=== PATIENT | female | born 1940 | race African-American/Black ===

== ENCOUNTER → 2017-06-29 | Outpatient (CLI) | payer MEDICARE, OTHER | END | disposition home or self-care (01) | LOC: KCIC US 14:47 | DX: M79.605 Pain in left leg (principal); M79.89 Other specified soft tissue disorders | CPT/HCPCS: 93971 ==

== ENCOUNTER → 2017-08-12 | Outpatient (CLI) | payer MEDICARE ==
[~2017-08-12] MED LIST: IOHEXOL 180 MG/ML 10 ML VIAL.; methylPREDNISolone ACETATE 40 MG/ML VIAL.; methylPREDNISolone ACETATE 80 MG/ML VIAL.
== END ==
LOC: PNCL 12:40
DX: M51.16 Intervertebral disc disorders with radiculopathy, lumbar region (principal); M48.061 Spinal stenosis, lumbar region without neurogenic claudication; I10 Essential (primary) hypertension; M19.90 Unspecified osteoarthritis, unspecified site; M79.605 Pain in left leg; Z88.2 Allergy status to sulfonamides; Z88.8 Allergy status to other drugs, medicaments and biological substances; Z98.890 Other specified postprocedural states
CPT/HCPCS: 62323; J1030; J1040; Q9965

== ENCOUNTER → 2017-08-26 | Outpatient (CLI) | payer MEDICARE ==
[~2017-08-26] MED LIST changes: +LIDOCAINE 1% PF 2 ML VIAL.
== END | disposition home or self-care (01) ==
LOC: PNCL 13:44
DX: M51.16 Intervertebral disc disorders with radiculopathy, lumbar region (principal); M48.061 Spinal stenosis, lumbar region without neurogenic claudication; Z88.1 Allergy status to other antibiotic agents; Z88.8 Allergy status to other drugs, medicaments and biological substances
CPT/HCPCS: 62323; J1030; J1040; Q9965

== ENCOUNTER → 2017-09-30 | Outpatient (CLI) | payer MEDICARE | END | disposition home or self-care (01) | LOC: PNCL 13:40 | DX: M51.16 Intervertebral disc disorders with radiculopathy, lumbar region (principal); M48.061 Spinal stenosis, lumbar region without neurogenic claudication; I12.9 Hypertensive chronic kidney disease with stage 1 through stage 4 chronic kidney disease, or unspecified chronic kidney disease; N18.2 Chronic kidney disease, stage 2 (mild) | CPT/HCPCS: G0463 ==

== ENCOUNTER → 2017-12-31 | Outpatient (CLI) | payer MEDICARE ==
[~2017-12-31] MED LIST changes: +FELO10TA PO; +GABA-585 PO; +INDA1.25 PO; -IOHEXOL 180 MG/ML 10 ML VIAL.; -LIDOCAINE 1% PF 2 ML VIAL.; +POTA10TA12 PO; +PROP15DR EACHEYE; +SPIR25TA5 PO; +TRAM50TA PO; -methylPREDNISolone ACETATE 40 MG/ML VIAL.; -methylPREDNISolone ACETATE 80 MG/ML VIAL.
--- NOTE | 2017-12-31 15:22 | PAIN ---
DATE OF SERVICE: 12/31/2017 PROGRESS NOTE FOR PAIN CLINIC DIAGNOSIS: Lumbar radiculopathy with lumbar spinal stenosis and lumbar degenerative disk disease. HISTORY OF PRESENT ILLNESS: The patient is a 77-year-old female who returns for followup status post lumbar epidural steroid injections x 2. The most recent injection was on 08/26/2017. The patient did very well. We tried a Medrol Dosepak after this. She was not quite ready for another shot and the Medrol Dosepak has done tremendous job in decreasing the pain as well in her left leg and her low back. The patient reports she is doing very well, currently helping and improvement of approximately 80%. The patient reports still some pain in the left leg, but very infrequent, only with extended standing and walking. The patient rates her pain is a 1 on a scale of 10 at its worst, its average and its least and is a 1 today. The patient reports it is tingling and dull at times, but doing much better. She is sleeping 8 hours a night, does not awaken her from sleep. She has been increasing her distance walking, doing household activities, recreational activities, traveling without difficulty. The patient reports no new motor or sensory deficits, no new bowel or bladder incontinence or other complaints. PHYSICAL EXAMINATION: VITAL SIGNS: The patient's blood pressure is 152/82, pulse 87, respirations are 20, temperature 98.5 degrees Fahrenheit, height is 5 feet 1 inch, weight is 139 pounds. GENERAL: The patient is awake, alert, oriented, appropriate, very pleasant demeanor. HEENT: Head shows normocephalic, atraumatic. Extraocular movements are intact and symmetrical. Oral cavity: Mucous membranes are moist and pink. Dentition is intact. NECK: Shows anterior throat supple without palpable lymphadenopathy noted. Swallow reflex is symmetrical. CHEST: Shows normal on inspection. Breath sounds are clear to auscultation bilaterally. HEART: Shows S1, S2 clear. No murmurs auscultated. ABDOMEN: Soft, nontender, nondistended. No palpable organomegaly is noted. No rebound or guarding demonstrated. BACK: Shows spine grossly in the midline. Normal appearing thoracic kyphosis and lumbar lordotic curvature. Lumbar paraspinous muscle shows symmetrical on inspection, on palpation shows some moderate tenderness, only diffusely bilaterally. EXTREMITIES: Lower extremities show deep tendon reflexes 1+ in the patellar and tendo calcaneus tendons. Motor exam is strong with 5/5 dorsiflexion and extension. The patient does have approximately 1-2+ pitting edema in the bilateral ankles to about a third of the distance to the knee on anterior tibia, slightly more on the left than the right, but is nontender. Options were discussed with the patient. The patient's old chart was reviewed as her current medication regimen updated. Current review of systems updated today as well. We will hold on any further injections at this time as the patient is doing quite well. We will have patient Medrol Dosepak available for her if she needs in the future and if this is not helpful in the future, we will revisit potential interventional techniques once again as she did very well with these as well. The patient would like to wait on each of these and we will have Medrol Dosepak available for her if necessary in the future. The patient also encouraged to follow up with her primary care physician regarding her edema in the legs as well. TRINI PÉREZ MD DR: MAN/jimbo JOB#: [id number] / [id number]
== END | disposition home or self-care (01) ==
LOC: PNCL 13:35
PROVIDERS: ATTEND Anesthesiology
DX: M51.16 Intervertebral disc disorders with radiculopathy, lumbar region (principal); M48.061 Spinal stenosis, lumbar region without neurogenic claudication; Z79.899 Other long term (current) drug therapy
CPT/HCPCS: G0463

== ENCOUNTER → 2018-10-15 | Outpatient (CLI) | payer MEDICARE ==
[~2018-10-15] MED LIST changes: +CHOL500050 PO; +DOCU100T11 PO; +FELO5TAB PO; +HYDR-3164 PO
[2018-10-15 13:52] LABS: BASO % 1 % (0-3); EOS # 0.4 x10^3/uL (0.0-0.7); EOS % 6 % (0-3); HEMOGLOBIN 14.3 g/dL (12.0-15.5); LYMPH # 0.6 x10^3/uL (1.0-4.8); LYMPH % 11 % (24-48); MEAN CORPUSCULAR HEMOGLOBIN 33 pg (25-35); MEAN CORPUSCULAR HGB CONC 34 g/dL (31-37); MEAN CORPUSCULAR VOLUME 96 fL (79-100); MONO # 0.5 x10^3/uL (0.0-1.1); MONO % 8 % (0-9); NEUT # 4.3 x10^3/uL (1.8-7.7); NEUT % 74 % (31-73); PLATELET COUNT 158 x10^3/uL (140-400); RED BLOOD COUNT 4.35 x10^6/uL (3.50-5.40); RED CELL DISTRIBUTION WIDTH 13.9 % (11.5-14.5); WHITE BLOOD COUNT 5.7 x10^3/uL (4.0-11.0)
[2018-10-15 14:23] LABS: ALBUMIN 3.8 g/dL (3.4-5.0); CALCIUM 9.5 mg/dL (8.5-10.1); CREATININE 1.8 mg/dL (0.6-1.0); GFR 32.8; POTASSIUM 4.2 mmol/L (3.5-5.1)
--- NOTE | 2018-10-18 10:49 | NUR ---
FAXED PRE - OP TEST REPORTS TO OFFICE AT 1538 10/18/2018 AND RECEIVED TRANSMITTAL CONFIRMATION.
== END | disposition home or self-care (01) ==
LOC: SURGPAT 12:58
PROVIDERS: ATTEND Surgery
DX: Z01.818 Encounter for other preprocedural examination (principal); Q64.4 Malformation of urachus; Z88.2 Allergy status to sulfonamides; Z88.8 Allergy status to other drugs, medicaments and biological substances; Z91.018 Allergy to other foods
CPT/HCPCS: 36415; 80048; 82040; 85025

== ENCOUNTER 2019-02-25 08:39 | Outpatient (CLI) | payer MEDICARE ==
[~2019-02-25] VITALS: Ht 156.2 cm; Wt 61.2 kg
[2019-02-25] VITALS (9 sets, daily range): BP systolic 156–189; BP diastolic 75–95
[2019-02-25 09:05] LABS: BASO % 1 % (0-3); EOS # 0.2 x10^3/uL (0.0-0.7); EOS % 3 % (0-3); HEMATOCRIT 41.7 % (36.0-47.0); HEMOGLOBIN 14.1 g/dL (12.0-15.5); LYMPH # 0.5 x10^3/uL (1.0-4.8); LYMPH % 10 % (24-48); MEAN CORPUSCULAR HEMOGLOBIN 33 pg (25-35); MEAN CORPUSCULAR HGB CONC 34 g/dL (31-37); MEAN CORPUSCULAR VOLUME 97 fL (79-100); MONO # 0.3 x10^3/uL (0.0-1.1); MONO % 6 % (0-9); NEUT # 4.4 x10^3/uL (1.8-7.7); NEUT % 80 % (31-73); PLATELET COUNT 174 x10^3/uL (140-400); WHITE BLOOD COUNT 5.5 x10^3/uL (4.0-11.0)
[2019-02-25] MEDS ORDERED: LIDOCAINE WITH 8.4% SOD BICARB 3 ML DISP.SYRIN. ONE (09:06)
[2019-02-25] MEDS ORDERED: fentaNYL PF VIAL 100 MCG/2 ML VIAL ONE (09:54)
[2019-02-25] MEDS ORDERED: MIDAZOLAM HCL/PF 2 MG/2 ML VIAL. ONE (09:54)
[2019-02-25] MEDS ORDERED: MIDAZOLAM HCL/PF 2 MG/2 ML VIAL. IV ONE (10:15)
[2019-02-25] MEDS ORDERED: LIDOCAINE WITH 8.4% SOD BICARB 3 ML DISP.SYRIN. IJ ONE (10:15)
[2019-02-25] MEDS ORDERED: fentaNYL PF VIAL 100 MCG/2 ML VIAL IV ONE (10:15)
--- NOTE | 2019-02-25 11:19 | RAD ---
CT-guided bone marrow biopsy. 02/25/2019 9:15 AM Indication: MGUS Discussion: The risks and benefits of the procedure, including but not limited to, bleeding and infection were discussed patient. Informed consent was obtained. The patient was brought to the CT scanner and placed in the prone position. A timeout procedure was performed. [employer] CT imaging of the pelvis demonstrated left ilium amenable to bone marrow biopsy. The overlying soft tissues were prepped and draped using maximum sterile barrier technique. 1% lidocaine without epinephrine was administered for local anesthesia. Under intermittent CT guidance, an OncControl needle was advanced into the bone marrow of the left iliac crest. 2 Aspirates and 1 core biopsy samples were obtained. Samples were delivered to pathology was present at the time of procedure. The needle was removed and manual pressure held to achieve hemostasis. No immediate complications were identified. The procedure was performed under conscious sedation including continuous cardiopulmonary monitoring via dedicated sedation nurse. Sedation time: 20 minutes Impression: Successful CT-guided bone marrow biopsy of the left iliac crest . PQRS Compliance Statement: One or more of the following individualized dose reduction techniques were utilized for this examination: 1. Automated exposure control 2. Adjustment of the mA and/or kV according to patient size 3. Use of iterative reconstruction technique
--- NOTE | 2019-02-25 11:36 | NUR ---
pt A&O x3, denies pain, nausea or dizziness. VSS. pt states her b/p runs around 150 and her primary care is aware of that. bandage on left sacral area has a pea size spot of drainage noted. ambulated w/o problem. tolerating po well. d/c instructions given, questions answered. out to vehicle per w/c. family to drive her home
== END 2019-02-25 11:35 | disposition home or self-care (01) ==
LOC: INTRAD 08:39
PROVIDERS: ATTEND Internal Medicine Hematology & Oncology
DX: D47.2 Monoclonal gammopathy (principal)
CPT/HCPCS: 36415; 38222; 77012; 85025; 85610; 88184; 88185; 88237; 99152; J2250; J3010

== ENCOUNTER → 2020-07-13 | Outpatient (CLI) | payer MEDICARE ==
[2019-02-25 11:15] VITALS: BP 172/85
[~2020-07-13] MED LIST changes: -FELO10TA PO; +FELO10TA4 PO; -FELO5TAB PO; +FELO5TAB4 PO
--- NOTE | 2020-07-14 09:45 | RAD ---
Exam: US DPLX ARTR EXTREM LOWER BILAT History: Claudication Comparison: None. Technique: Grayscale, color, and spectral Doppler ultrasound images of the lower extremity arteries. Findings: There is scattered calcifications bilaterally, greatest in the common femoral arteries and left popli teal artery. Peak systolic velocities (cm/s) and waveforms in the lower extremities: Right: Common femoral artery: 205, biphasic, Profunda femoris artery: 191, monophasic Proximal superficial femoral artery: 138, biphasic Mid superficial femoral artery: 94, biphasic Distal superficial femoral artery: 82, biphasic Popliteal artery: 94, biphasic Posterior tibial artery proximally: 123, biphasic Posterior tibial artery distally: 13, monophasic Peroneal artery: 55, monophasic Anterior tibial artery: 126, monophasic Dorsalis pedis artery: 81, monophasic Left: Common femoral artery: 171, biphasic Profunda femoris artery: 109, biphasic Proximal superficial femoral artery: 132, biphasic Mid superficial femoral artery: 98, biphasic Distal superficial femoral artery: 86, biphasic Popliteal artery: 114, biphasic Posterior tibial artery proximally: 136, biphasic Posterior tibial artery distally: 112, monophasic Peroneal artery: 76, biphasic Anterior tibial artery: 107, biphasic Dorsalis pedis artery: 50, monophasic Impression: Peripheral arterial disease in the lower extremities with hemodynamically significant stenosis in the common femoral arteries, greater on the right. Diminished flow in the bilateral calf and ankle arter ies, greater on the right. Consider CT angiogram or conventional angiogram to further evaluate if ind icated. Electronically signed by: Nellie Bryant MD (07/14/2020 9:43 AM) [id number]
--- NOTE | 2020-07-15 07:55 | RAD ---
Ultrasound venous system of the legs for 2020. Reason for exam: Venous insufficiency. Color Doppler and spectral waveform analysis was performed along with real-time grayscale technique. Greater small saphenous veins are patent bilaterally. Right great saphenous vein measured 4 mm in the upper thigh at the right small saphenous vein 2 mm the upper calf. Left great saphenous vein measure d 5 mm in the upper thigh and small saphenous vein 3 mm. No reflux was shown in any vessel. IMPRESSION: No evidence of venous reflux. Electronically signed by: Satish Stephens Jr., MD (07/15/2020 7:53 AM) [id number]
== END ==
LOC: US 14:41
PROVIDERS: ATTEND Psychiatry & Neurology Neurology with Special Qualifications in Child Neurology
DX: I70.293 Other atherosclerosis of native arteries of extremities, bilateral legs (principal); I87.2 Venous insufficiency (chronic) (peripheral); R60.0 Localized edema
CPT/HCPCS: 93925; 93970

== ENCOUNTER → 2020-10-05 | Outpatient (CLI) | payer MEDICARE ==
[2020-10-05] VITALS (12 sets, daily range): BP systolic 135–190; BP diastolic 67–78
[~2020-10-05] VITALS: Ht 157.5 cm; Wt 54.5 kg
[~2020-10-05] MED LIST changes: +ACETAMINOPHEN 325 MG TABLET. PO PRN; +CONTRAST GIVEN. MC PRN; +HEPARIN for IV BOLUS 10,000 UNIT/10 ML VIAL. IART ONE; +HEPARIN for IV BOLUS 10,000 UNIT/10 ML VIAL. ONE; +IODIXANOL 320 MG/ML 100 ML VIAL. IART ONE; +IODIXANOL 320 MG/ML 100 ML VIAL. ONE; +IV 1/2 NORMAL SALINE 1,000 ML IV SCH; +LIDOCAINE 1% PF 2 ML VIAL. INJ ONE; +LIDOCAINE 1% PF 2 ML VIAL. ONE; +MIDAZOLAM HCL/PF 2 MG/2 ML VIAL. IV ONE; +MIDAZOLAM HCL/PF 2 MG/2 ML VIAL. ONE; +NITROGLYCERIN 200 MCG/2 ML SYRINGE FOR CATH/VASC LAB. IART ONE; +NITROGLYCERIN 200 MCG/2 ML SYRINGE FOR CATH/VASC LAB. ONE; +VERAPAMIL 5 MG/2 ML VIAL. IART ONE; +VERAPAMIL 5 MG/2 ML VIAL. ONE; +fentaNYL PF VIAL 100 MCG/2 ML VIAL IV ONE; +fentaNYL PF VIAL 100 MCG/2 ML VIAL ONE
[2020-10-05 07:51] LABS: HEMATOCRIT 36.4 % (36.0-47.0); HEMOGLOBIN 12.2 g/dL (12.0-15.5); RED BLOOD COUNT 3.73 x10^6/uL (3.50-5.40); RED CELL DISTRIBUTION WIDTH 13.7 % (11.5-14.5); WHITE BLOOD COUNT 4.6 x10^3/uL (4.0-11.0)
[2020-10-05 08:12] LABS: PROTHROMBIN TIME PATIENT 13.1 SEC (11.7-14.0)
[2020-10-05 08:14] LABS: CALCIUM 8.4 mg/dL (8.5-10.1); CREATININE 1.6 mg/dL (0.6-1.0); GFR 37.3; POTASSIUM 4.2 mmol/L (3.5-5.1)
--- NOTE | 2020-10-05 08:45 | PDOC ---
MODERATE SEDATION ASSESSMENT RISKS/ALTERNATIVES Risks/Alternatives Risks and alternatives of this type of sedation and procedure discussed with: RISK/ALTERNATIVES: Patient H & P ON CHART H & P H & P on chart and reviewed for co-morbid conditions and appropriate labs. H&P ON CHART: Yes STATUS PREG STATUS ASSESSED: N/A MEDS/ALLERGIES REVIEWED Meds/Allergies Reviewed Medications and Allergies including time and route of recently administered narcotics and sedatives. MEDS/ALLERGIES REVIEWED: Yes ASA RATING ASA RATING: II AIRWAY ASSESSMENT Airway Assessment Airway patency, oral function limitations, presence of caps, crowns, dentures, partials, and ability to extend neck assessed. AIRWAY ASSESSMENT: Yes MALLAMPATI SCORE MALLAMPATI SCORE: II PRE-SEDATION ASSESSMENT PRE-SEDATION ASSESSMENT: Yes MARIE MINER MD Oct 05, 2020 08:45
--- NOTE | 2020-10-05 12:00 | NUR ---
Discharge Note: RAHUL CHOUDHARY Discharge instructions and discharge home medications reviewed with Patient and a copy given. All questions have been answered and understanding verbalized. The following instructions and handouts were given: Moderate sedation and radial site care. Dressing changed to right radial site, no bleeding noted and arm board reapplied. Left peripheral IV site remained intact, process environmental technician will DC after ECHO complete. Patient transfered to [facility] via cart, family accompanied patient.
--- NOTE | 2020-10-05 12:23 | CARD ---
MR#: [id number] Date of Study: 10/05/2020 Ordering Physician: MARIE MAJOR, Referring Physician: MARIE MAJOR Tech: RT Jason(R) APPROVED REPORT Patient StatusOUT-PATIENT Public Affairs Director: RT Jason(R) Procedure(s) performed: Aortogram with bilateral lower extremity runoff via right transradial approac h FLUORO TIME 16.2 MIN. DOSE 38.5GYMC2 50 MIN MODERATE SEDATION 96CC CONTRAST INDICATION FOR PROCEDURE The indication(s) include : Peripheral artery disease with claudication. CASE TECHNIQUE After explaining the risks, benefits, and alternative options, informed consent was obtained from the patient. IV conscious sedation was used throughout procedure with appropriate monitoring and was per formed in the presence of a registered nurse who was an independent trained observer other than the philippe duenas performing the procedure. During this case, Fluoroscopy and low osmolar contrast were used f or imaging. Specimen(s) Removed: No Estimated Blood loss: 15 cc's. PROCEDURE NARRATIVE After explaining the risk, benefits and alternative options, informed consent was obtained from diego mcduffie. Patient was brought to the cardiac Audience Coordinator and her right wrist was prepped and draped in the us ual fashion after confirming a positive modified Edy's test. Arterial access was obtained in the [facility] radial artery and a 6 Spanish sheath was inserted. A 6 Spanish R2P PVI multicurve catheter was th en advanced over a 0.035 inch Glidewire advantage guidewire and with the tip positioned in the distal descending aorta, aorto iliac angiography was performed. The catheter was then advanced into the [facility] external iliac artery and selective right lower extremity angiography was performed. This cathet er was then positioned in the left external iliac artery and selective left lower extremity angiograp hy was performed. Patient tolerated the procedure well. Hemostasis was achieved using TR band. The re were no immediate complications. FINDINGS 1. No significant stenosis involving the distal descending aorta 2. No significant stenosis involving bilateral common and external iliac arteries 3. The right common femoral artery showed eccentric calcification without any significant stenosis. The left common femoral artery did not show any significant stenosis. 4. The right superficial femoral artery did not show any significant stenosis. The left superficial femoral artery showed 40% stenosis in the distal segment. 5. The right anterior tibial artery showed 100% chronic total occlusion proximally with distal recon stitution from collaterals. The peroneal artery showed 90% stenosis followed by 100% chronic total o cclusion with distal reconstitution from collaterals. The right posterior tibial artery showed 100% chronic total occlusion. 6. The left anterior tibial artery showed 100% chronic total occlusion in the proximal segment. The left peroneal and posterior tibial arteries showed 100% chronic total occlusions in the proximal to mid segment with distal reconstitution from collaterals. Conclusion Severe below the knee peripheral artery disease as described above without any significant stenosis a jay the knee. Recommendations Since patient does not have any nonhealing wounds, is below the knee peripheral artery disease can be managed conservatively. Vascular risk factor modification including regular exercise regimen. Signed by : Marie Major, Electronically Approved : 10/05/2020 12:22:45
--- NOTE | 2020-10-05 16:52 | CARD ---
MR#: [id number] Date of Study: 10/05/2020 Ordering Physician: MARIE MINER, Referring Physician: MARIE MINER Tech: Elaine Hummel [facility] APPROVED REPORT EXAM: Two-dimensional and M-mode echocardiogram with Doppler and color Doppler. Other Information Quality : AverageHR: 53bpm Rhythm : NSR INDICATION Hypertension/HCVD Chest Pain RISK FACTORS Hypertension 2D DIMENSIONS RVDd2.9 (2.9-3.5cm)Left Atrium(2D)3.3 (1.6-4.0cm) IVSd1.1 (0.7-1.1cm)Aortic Root(2D)2.9 (2.0-3.7cm) LVDd4.2 (3.9-5.9cm)LVOT Diameter2.0 (1.8-2.4cm) PWd1.2 (0.7-1.1cm)LVDs2.0 (2.5-4.0cm) FS (%) 52.2 %SV66.7 ml LVEF(%)83.6 (>50%) Aortic Valve AoV Peak Leander.196.7cm/sAoV VTI51.2cm AO Peak GR.15.5mmHgLVOT Peak Leander.121.2cm/s AO Mean GR.7mmHgAVA (VMAX)1.85cm2 Mitral Valve MV E Kopfjlgf97.1cm/sMV DECEL ONVP895zm MV A Ffnadklj890.8cm/sE/A Ratio0.8 Tricuspid Valve TR P. Tltobesp804hj/sTR Peak Gr.18mmHg LEFT VENTRICLE The left ventricle is normal size. There is mild concentric left ventricular hypertrophy. The left ve ntricular systolic function is normal. Estimated ejection fraction 55-60%, There is normal LV segmen anne wall motion. Transmitral Doppler flow pattern is Grade I-abnormal relaxation pattern. RIGHT VENTRICLE The right ventricle is normal size. There is normal right ventricular wall thickness. The right ventr icular systolic function is normal. ATRIA The left atrium is mildly dilated. The right atrium size is normal. The interatrial septum is intact with no evidence for an atrial septal defect or patent foramen ovale as noted on 2-D or Doppler imagi ng. AORTIC VALVE The aortic valve is calcified but opens well. Doppler and Color Flow revealed mild aortic regurgitati on. There is no significant aortic valvular stenosis. MITRAL VALVE The mitral valve is normal in structure and function. There is no evidence of mitral valve prolapse. There is no mitral valve stenosis. Doppler and Color-flow revealed mild mitral regurgitation. TRICUSPID VALVE The tricuspid valve is normal in structure and function. Doppler and Color Flow revealed mild tricusp id regurgitation. Estimated PAP 20-25 mmHg. There is no tricuspid valve stenosis. PULMONIC VALVE The pulmonary valve is normal in structure and function. Doppler and Color Flow revealed no pulmonic valvular regurgitation. GREAT VESSELS The aortic root is normal in size. The ascending aorta is normal in size. The IVC is normal in size a nd collapses >50% with inspiration. PERICARDIAL EFFUSION There is no evidence of significant pericardial effusion. Critical Notification Critical Value: No <Conclusion> The left ventricular systolic function is normal. Estimated ejection fraction 55-60%, There is normal LV segmental wall motion. Transmitral Doppler flow pattern is Grade I-abnormal relaxation pattern. Mild mitral regurgitation. Mild tricuspid regurgitation. Estimated PAP 20-25 mmHg. There is no evidence of significant pericardial effusion. Signed by : Marie Miner, Electronically Approved : 10/05/2020 16:51:46
== END ==
LOC: CCL 07:01
PROVIDERS: ATTEND Internal Medicine Cardiovascular Disease
DX: I70.213 Atherosclerosis of native arteries of extremities with intermittent claudication, bilateral legs (principal); I12.9 Hypertensive chronic kidney disease with stage 1 through stage 4 chronic kidney disease, or unspecified chronic kidney disease; N18.9 Chronic kidney disease, unspecified; E78.00 Pure hypercholesterolemia, unspecified; M19.90 Unspecified osteoarthritis, unspecified site; M81.0 Age-related osteoporosis without current pathological fracture; Z79.899 Other long term (current) drug therapy; Z98.890 Other specified postprocedural states
CPT/HCPCS: 36415; 75625; 75716; 80048; 85027; 85610; 93306; 99152; 99153; C1769; C1894; J1644; J2250; J3010; J3490; Q9967